=== PATIENT | female | born 1990 | race Two or more races ===

== ENCOUNTER → 2022-12-04 08:00 | Outpatient (CLI) | payer OTHER ==
[~2022-12-04] VITALS: Ht 154.9 cm; Wt 77.1 kg
== END | disposition home or self-care (01) ==
LOC: LAB 08:00 → ADM 09:15 → CIR.AMB 12-05 09:15 → EDSTATUS 12-05 09:15
PROVIDERS: ATTEND Obstetrics & Gynecology
DX: N91.1 Secondary amenorrhea (principal); J45.998 Other asthma; N84.0 Polyp of corpus uteri; D25.0 Submucous leiomyoma of uterus; N92.0 Excessive and frequent menstruation with regular cycle